=== PATIENT | female | born 1975 | race Two or more races ===

== ENCOUNTER 2021-11-13 13:02 | Outpatient (CLI) | payer OTHER | END 2021-11-13 13:08 | disposition home or self-care (01) | LOC: RAD 13:02 | PROVIDERS: ATTEND Internal Medicine Hematology & Oncology | DX: C78.01 Secondary malignant neoplasm of right lung (principal); J91.0 Malignant pleural effusion; C78.02 Secondary malignant neoplasm of left lung; C50.411 Malignant neoplasm of upper-outer quadrant of right female breast ==